=== PATIENT | male | born 1960 | race Caucasian/White ===

== ENCOUNTER 2017-04-10 08:12 | Day surgery (SDC) | payer BC ==
[~2017-04-10] VITALS: Ht 185.4 cm; Wt 117.9 kg
[~2017-04-10 08:12] MED LIST: DIOVAN40 MG PO; LITE COAT ASPI325 M1 PO; OMEPRAZOLE40 M1 PO; ZOCOR20 MG PO
[2017-04-10 09:00] VITALS: BP 142/79
[2017-04-10 09:49] LABS: METH RESISTANT S AUREUS PCR NEGATIVE (NEGATIVE)
[2017-04-10 10:07] LABS: PROBE CHECK PASS; SPECIMEN PROCESSING CONTROL PASS
[2017-04-10] MEDS ORDERED: COLACE100 MG PO ×2 (12:40→12:43)
[2017-04-10] MEDS ORDERED: NORCO 5/3251 TABLET PO ×2 (12:40→12:43)
[2017-04-10 13:30] VITALS: BP 130/87
[2017-04-10 14:30] VITALS: BP 119/70
== END 2017-04-10 15:02 | disposition home or self-care (01) ==
LOC: SDC 08:12
PROVIDERS: Thoracic Surgery (Cardiothoracic Vascular Surgery)
PROC: 0WUF0JZ Supplement Abdominal Wall with Synthetic Substitute, Open Approach (ICD-10-PCS; principal; 2017-04-10)
DX: K42.9 Umbilical hernia without obstruction or gangrene (principal); I10 Essential (primary) hypertension; E78.5 Hyperlipidemia, unspecified; K21.9 Gastro-esophageal reflux disease without esophagitis; Z80.8 Family history of malignant neoplasm of other organs or systems; Z82.49 Family history of ischemic heart disease and other diseases of the circulatory system
CPT/HCPCS: 87641; C1781; J0330; J0690; J0696; J1100; J1885; J2250; J2405; J2710; J3010; J7120